=== PATIENT | male | born 1945 | race Caucasian/White ===

== ENCOUNTER → 2016-11-20 | Outpatient (CLI) | payer BC ==
[2016-11-16 11:41] LABS: BLOOD UREA NITROGEN 20 mg/dl (7-18); BUN/CREATININE RATIO 17.7 (10-20)
[~2016-11-20] MED LIST: ACET-1311 PO; CLC100X PO; OPTIRAY 320 IV PRN; POLY335040 PO
--- NOTE | 2016-11-20 08:30 | DIAGNOSTIC IMAGING REPORT ---
CT KIDNEY (ABDOMEN) COMBO CT DOSE: 658.47 mGycm CLINICAL HISTORY: Renal cell carcinoma TECHNIQUE: Unenhanced images were obtained through the abdomen and pelvis. The patient was then scanned in a dynamic helical fashion during intravenous administration of 118 cc of Optiray 320. 5 minute delayed images were also acquired. COMPARISON STUDY: Outside CT scan dated 09/10/2014 FINDINGS: Visualized portions of the lung bases are unremarkable. There is a small hiatal hernia. No hepatic masses are visualized. No gallbladder lesions are visualized. No splenic masses are visualized. No pancreatic masses are visualized. No adrenal masses are visualized. There is no evidence of abdominal aortic dilatation. There is right renal cortical scarring presumed secondary to a prior segmental resection. No solid renal masses are visualized. There is a 4 mm left renal hypodensity. This remains unchanged from December 2012, and therefore is likely benign. There are mesenteric calcifications, likely reflecting jay calcifications. These remain unchanged from August 2014 On delayed imaging, no collecting system lesions are visualized. Several nonspecific lytic foci within the iliac bones remain unchanged the prior study, and are therefore unlikely to represent metastatic disease IMPRESSION: 1. Postsurgical changes involving the right kidney. No evidence of tumor recurrence. 2. 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 Electronically signed by: Hussein James M.D. 11/20/2016 8:28 AM Dictated Date/Time: 11/20/2016 8:20 AM
== END | disposition home or self-care (01) ==
LOC: C.CTS 07:56
PROVIDERS: ATTEND Urology
DX: C64.9 Malignant neoplasm of unspecified kidney, except renal pelvis (principal); D49.519 Neoplasm of unspecified behavior of unspecified kidney

== ENCOUNTER → 2017-01-12 | Outpatient (CLI) | payer BC ==
[~2017-01-12] MED LIST changes: -OPTIRAY 320 IV PRN
--- NOTE | 2017-01-12 10:46 | DIAGNOSTIC IMAGING REPORT ---
MRI CERVICAL WITHOUT CONTRAST CLINICAL HISTORY: Neck pain with left arm radiculopathy. TECHNIQUE: Sagittal and axial T1, T2 and STIR images were obtained. COMPARISON STUDY: No previous studies for comparison. There are no suspicious areas of marrow replacement. No intrinsic cervical cord lesions are visualized. C2-3: There is no evidence of disc bulge or focal herniation. There is no spinal or foraminal stenosis. C3-4: There is a small left foraminal disc protrusion. There is no spinal stenosis. There is mild left-sided foraminal narrowing. C4-5: There are no disc bulges or focal herniations. There is no spinal or foraminal stenosis. C5-6 :No disc bulges or herniations are visualized. There is mild bilateral foraminal narrowing. C6-7: No disc bulges or herniations are visualized. There is mild bilateral foraminal narrowing. C7-T1: There is no evidence of disc bulge or focal herniation. There is no evidence of spinal or foraminal stenosis. IMPRESSION: 1. Mild multilevel spondylitic changes. 2. Very small left foraminal disc protrusion at the L3-4 level 3. Mild left-sided foraminal narrowing the C3-4 level. Mild bilateral foraminal narrowing at the C5-C6, and C6-7 levels. 4. No evidence of significant spinal stenosis Electronically signed by: Hussein James M.D. 01/12/2017 10:45 AM Dictated Date/Time: 01/12/2017 10:40 AM
== END | disposition home or self-care (01) ==
LOC: C.MRI 09:46
PROVIDERS: ATTEND Physical Medicine & Rehabilitation
DX: M54.12 Radiculopathy, cervical region (principal)

== ENCOUNTER → 2017-06-19 | Outpatient (CLI) | payer BC ==
--- NOTE | 2017-06-25 11:55 | CODING QUERY MEDICAL NECESSITY ---
CQSUPPORTING DIAGNOSIS NEEDED A supporting diagnosis is required for the test/procedure performed on this patient in order for us to be reimbursed by the patient's insurance. Please provide a supporting diagnosis for the following test/procedure listed below next to the test name along with your signature. *If there is no additional diagnosis for this patient that would support the following test/procedure please document that below next to the test/procedure. Test(s)/Procedure(s) that require a supporting diagnosis: DOS 06/19/17 PROSTATE ANTIGEN TEST (PSA) Provider Signature: Date: Thank you Diane Khalil Health Information Management Once completed, please kindly fax back to [phone] For questions please call [phone]
== END | disposition home or self-care (01) ==
LOC: C.LAB 09:35
PROVIDERS: ATTEND Urology
DX: C64.9 Malignant neoplasm of unspecified kidney, except renal pelvis (principal); R97.20 Elevated prostate specific antigen [PSA]; N40.1 Benign prostatic hyperplasia with lower urinary tract symptoms

== ENCOUNTER → 2017-08-16 | Outpatient (CLI) | payer BC | END | disposition home or self-care (01) | LOC: C.PATHSPEC 17:14 | PROVIDERS: ATTEND Urology | DX: R97.20 Elevated prostate specific antigen [PSA] (principal) ==